=== PATIENT | male | born 1955 | race Hispanic/Latino ===

== ENCOUNTER 2020-11-28 08:58 | Outpatient (CLI) | payer MEDICARE | END 2020-11-28 08:59 | disposition home or self-care (01) | LOC: BICULT 08:58 | PROVIDERS: ATTEND Family Medicine | DX: N50.811 Right testicular pain (principal); N50.812 Left testicular pain; N50.89 Other specified disorders of the male genital organs | CPT/HCPCS: 76870; 93976 ==

== ENCOUNTER 2022-11-02 08:14 | Outpatient (CLI) | payer OTHER | END 2022-11-02 08:15 | disposition home or self-care (01) | LOC: BICCT 08:14 | PROVIDERS: ATTEND Family Medicine | DX: I10 Essential (primary) hypertension (principal); E78.2 Mixed hyperlipidemia; I70.90 Unspecified atherosclerosis | CPT/HCPCS: 75571 ==